=== PATIENT | male | born 1985 | race Caucasian/White ===

== ENCOUNTER 2017-03-20 15:35 | Inpatient (IN) | payer BC, MEDICAID ==
[~2017-03-20] VITALS: Ht 177.8 cm; Wt 81.6 kg
[2017-03-20 15:39] VITALS: BP_SYST 144
--- NOTE | 2017-03-20 15:50 | NUR ---
Patient to ED for eval of abd pain and alcohol intoxication. Patient to Bed 3 to await MD evaluation. Family at bedside, will cotinue to observe and assess
--- NOTE | 2017-03-20 16:00 | NUR ---
Patient to ED for eval of alcohol intoxication-last drink at 0600. Patient c/o sharp pain to chest and abd. Patient denies SOB, also c/o nausea with vomiting at home-none in ED. Patient has been seen and evaluated by ER MD-will continue to observe and assess
--- NOTE | 2017-03-20 16:00 | NUR ---
Dr Wall at bedside to evaluate patient.
[2017-03-20] MEDS ORDERED: FOLIC ACID 1 MG, THIAMINE HCL 100 MG, MAGNESIUM SULFATE 1 GM, MVI 10 ML in NACL 0.9% 1,... IV ONE (16:15)
[2017-03-20 16:32] LABS: BASOPHILS % (AUTO) 0.6 % (0.0-2.0); EOSINOPHILS % (AUTO) 0.1 % (0.0-4.0); HEMATOCRIT 42.6 % (36-54); HEMOGLOBIN 14.3 g/dL (14.0-18.0); LYMPHOCYTES # (AUTO) 0.9 K/uL (1.0-5.5); LYMPHOCYTES % (AUTO) 12.6 % (20.5-51.5); MEAN CORPUSCULAR HEMOGLOBIN 30 pg (27-31); MEAN CORPUSCULAR HGB CONC 34 % (32-36); MEAN CORPUSCULAR VOLUME 88 fL (79.0-98.0); MONOCYTES # (AUTO) 0.5 K/uL (0.0-1.0); MONOCYTES % (AUTO) 6.8 % (1.7-9.3); NEUTROPHILS # (AUTO) 5.8 K/uL (1.8-7.7); NEUTROPHILS % (AUTO) 79.9 % (40.0-70.0); PLATELET COUNT (AUTO) 183 K/uL (130-430); RED BLOOD CELL COUNT(AUTO) 4.84 MIL/uL (4.2-6.2); RED CELL DISTRIBUTION WIDTH 11.5 % (9.0-15.0); WHITE BLOOD COUNT (AUTO) 7.2 K/uL (4.8-10.8)
--- NOTE | 2017-03-20 16:35 | NUR ---
Patient vomited 100mL primarily clear emesis with scant blood. Patient also reports black stool. Dr. Wall was advised.
[2017-03-20 16:41] LABS: CALCIUM 8.8 mg/dL (8.4-11.0); CREATININE 0.74 mg/dL (0.55-1.30); POTASSIUM 3.2 mmol/L (3.5-5.1)
[2017-03-20 16:43] LABS: PROTHROMBIN TIME 10.4 SECS (9.5-12.5)
[2017-03-20 16:45] LABS: ALBUMIN 3.9 g/dL (3.4-4.8); TOTAL BILIRUBIN 0.6 mg/dL (0.0-1.0); TOTAL PROTEIN, SERUM 7.5 g/dL (6.4-8.3)
[2017-03-20 16:45] LABS: BILIRUBIN,URINE NEGATIVE (NEGATIVE); CLARITY/URINE CLEAR (CLEAR); COLOR,URINE YELLOW (YELLOW); GLUCOSE,URINE NEGATIVE (NEGATIVE); KETONES,URINE TRACE (NEGATIVE); LEUKOCYTE ESTERASE ,URINE NEGATIVE (NEGATIVE); NITRITE, URINE NEGATIVE (NEGATIVE); PROTEIN URINE 1+ (NEGATIVE)
[2017-03-20] MEDS ORDERED: ONDANSETRON HCL 4 MG/2 ML VIAL IVP ONE (16:45)
[2017-03-20] MEDS ORDERED: LORazepam 2 MG/ML VIAL (FOR ER USE) IVP ONE ×2 (16:45→18:15)
[2017-03-20] MEDS ORDERED: NACL 0.9% 1,000 ML IV ONE (16:45)
[2017-03-20 16:52] LABS: BLOOD, URINE TRACE (NEGATIVE)
[2017-03-20 16:56] LABS: BACTERIA,URINE FEW /HPF (None Seen); MUCUS,URINE 1+ /LPF (None Seen); RBC,URINE 0-3 /HPF (0-3)
[2017-03-20 16:59] LABS: BARBITURATE, URINE NEGATIVE (NEG <=200); BENZODIAZEPINE, URINE NEGATIVE (NEG <=150); CANNABINOID, URINE NEGATIVE (NEG <=50); COCAINE, URINE NEGATIVE (NEG <=150); METHAMPHETAMINES SCREEN,URINE NEGATIVE (NEG <=500); OPIATE, URINE NEGATIVE (NEG <=100); PHENCYCLIDINE SCREEN,URINE NEGATIVE (NEG <=25); UR TRICYCLIC ANTIDEPRESSANTS NEGATIVE (NEG <=300); URINE AMPHETAMINE NEGATIVE (NEG <=500); URINE METHADONE NEGATIVE (NEG <=200); URINE OXYCODONE SCREEN NEGATIVE (NEG <=100); URINE PROPOXYPHENE SCREEN NEGATIVE (NEG <=300)
--- NOTE | 2017-03-20 16:59 | NUR ---
Patient medicated with Zofran and Ativan as needed. IVF infusing without difficulty no redness or swelling noted at site.
[2017-03-20] MEDS ORDERED: MULT1CAP34 (17:45)
[2017-03-20] MEDS ORDERED: DIVA500T4 PO (17:45)
[2017-03-20] MEDS ORDERED: bp (17:45)
[2017-03-20] MEDS ORDERED: POTASSIUM CHLORIDE 20 MEQ TAB.PRT.SR PO ONE (19:00)
--- NOTE | 2017-03-20 19:17 | NUR ---
Patient will be admitted to care [facility]. Admitted to Tele unit. Will go to room 120 A. Belongings list completed. Summary report printed. Report will be given at bedside.
--- NOTE | 2017-03-20 19:33 | NUR ---
ADMISSION NOTE Received patient from ER via gurney. Patient admitted with diagnosis of Alcohol withdrawal. Patient is awake, alert, oriented X 1-2. Patient oriented to hospital room, call light, toileting, pain management and safety-teach back done. Patient informed that Uriah will be his nurse and that their room number is 120A. Personal belongings checked and Belongings List documented. Call light within reach.
[2017-03-20 19:58] VITALS: BP_SYST 124
[2017-03-20 20:16] VITALS: BP_SYST 124
[2017-03-20 20:17] VITALS: BP_SYST 124
--- NOTE | 2017-03-20 20:42 | NUR ---
NOTES PT ASSISTED TO THE BATHROOM AND VOIDED.BACK TO BED WITH ASSIST.PT ASKING FOR DAYNE PAUL WAS NOTIFIED
[2017-03-20] MEDS: LORazepam 2 MG/ML VIAL IVP PRN (20:50)
[2017-03-20] MEDS: KCL 20 mEq in D5/0.45NS 1000mL 1,000 ML IV SCH ×2 (21:02→21:25)
--- NOTE | 2017-03-20 22:09 | NUR ---
NOTES PT SLEEPING ON AND OFF.FATHER IS AT THE BEDSIDE.CONTINUE TO MONITOR.
--- NOTE | 2017-03-20 23:13 | NUR ---
NOTES PT RESTING WITH EYES CLOSED,FATHER REMAINS AT THE BEDSIDE.
[2017-03-21 00:18] VITALS: BP_SYST 126
--- NOTE | 2017-03-21 01:26 | NUR ---
NOTES PT SLEEPING,SITTER AT THE BEDSIDE.CONTINUE TO MONITOR.
--- NOTE | 2017-03-21 02:24 | NUR ---
NOTES AWAKE ALERT C/O ANXIETY,ASKING FOR ATIVAN.RN WAS NOTIFIED.
--- NOTE | 2017-03-21 02:38 | NUR ---
NOTES PT WAS WAITING FOR THE RN TO BRING THE ATIVAN BUT NOW HAS FALLEN ASLEEP.CONTINUE TO MONITOR.
--- NOTE | 2017-03-21 03:20 | NUR ---
NOTES PT SLEEPING ,FATHER REMAINS AT THE BEDSIDE.CONTINUE TO MONITOR.
[2017-03-21 04:00] VITALS: BP_SYST 130; BP_SYST 141
--- NOTE | 2017-03-21 05:21 | NUR ---
PT CONTINUES TO SLEEP.,WILL CONTINUE TO MONITOR
--- NOTE | 2017-03-21 05:38 | NUR ---
NOTES BREAD SUPERVISOR IS AT THE BEDSIDE TO DRAW BLOOD.
--- NOTE | 2017-03-21 06:23 | NUR ---
CLOSING NOTES.PT REMAINS ASLEEP,WILL ENDORSE THE CARE OF THE PT TO THE DAY NURSE.
[2017-03-21 06:47] LABS: BASOPHILS % (AUTO) 0.8 % (0.0-2.0); HEMOGLOBIN 13.6 g/dL (14.0-18.0); LYMPHOCYTES # (AUTO) 0.7 K/uL (1.0-5.5); LYMPHOCYTES % (AUTO) 14.5 % (20.5-51.5); MEAN CORPUSCULAR HEMOGLOBIN 31 pg (27-31); MEAN CORPUSCULAR HGB CONC 35 % (32-36); MEAN CORPUSCULAR VOLUME 88 fL (79.0-98.0); MONOCYTES # (AUTO) 0.3 K/uL (0.0-1.0); MONOCYTES % (AUTO) 6.7 % (1.7-9.3); NEUTROPHILS # (AUTO) 3.9 K/uL (1.8-7.7); PLATELET COUNT (AUTO) 121 K/uL (130-430); RED BLOOD CELL COUNT(AUTO) 4.43 MIL/uL (4.2-6.2); RED CELL DISTRIBUTION WIDTH 11.9 % (9.0-15.0)
[2017-03-21 06:51] LABS: WHITE BLOOD COUNT (AUTO) 4.9 K/uL (4.8-10.8)
[2017-03-21 07:06] LABS: ALBUMIN 3.2 g/dL (3.4-4.8); CALCIUM 8.3 mg/dL (8.4-11.0); CREATININE 0.71 mg/dL (0.55-1.30); POTASSIUM 3.6 mmol/L (3.5-5.1); TOTAL BILIRUBIN 0.9 mg/dL (0.0-1.0); TOTAL PROTEIN, SERUM 6.4 g/dL (6.4-8.3)
--- NOTE | 2017-03-21 07:50 | NUR ---
AM SHIFT RN NOTE: RECEIVED PT A/O X 3-4, C/O N/V FOR 1 DAY, IV AT LEFT AC WITH D51/2 NS KCL @ 100 ML/HR, SIP OF WATER FOR NOW, SKIN INTACT, VOIDING, AMBULATED WITH WAXING MACHINE OPERATOR, SITTER AT BED SIDE.FAMILY AT BEDSIDE.
[2017-03-21 08:00] VITALS: BP_SYST 134
[2017-03-21] MEDS: DIVALPROEX SODIUM 500 MG TAB.SR.24H (DEPAKOTE ER) PO SCH (08:27)
[2017-03-21] MEDS: KCL 20 mEq in D5/0.45NS 1000mL 1,000 ML IV SCH (08:28)
--- NOTE | 2017-03-21 08:30 | NUR ---
MEDICATION AND ROUNDS PT WAS C/O NERVIOUS, MEDS GIVEN, BED AT LOWEST POSITION, CALL LIGHT WITHIN REACH.
[2017-03-21] MEDS ORDERED: NOR10 PO (08:50)
--- NOTE | 2017-03-21 09:27 | NUR ---
DR JIMENEZ HERE TO SEE THE PATIENT AT BEDSIDE, INFORMED THAT MED REC NEEDS TO BE CONTINUED AND REQUESTED PER PATIENT TO ADVANCE THE DIET. HOME MEDICATIONS CONTINUED AND DIET ORDER RECEIVED: ADVANCE TOLERATED. WILL FOLLOW UP.
[2017-03-21] MEDS ORDERED: amLODIPine BESYLATE 10 MG TABLET PO ONE (09:30)
[2017-03-21] MEDS: LORazepam 2 MG/ML VIAL IVP PRN ×2 (10:05→19:39)
--- NOTE | 2017-03-21 10:54 | NUR ---
PT AMBULATED PT PT HAD PT GIVEN AMBULATED TRAINING WELL TODAY, NO PAIN AT THIS TIME, CONTINUE TO MONITOR.
[2017-03-21 11:40] VITALS: BP_SYST 130
--- NOTE | 2017-03-21 12:09 | NUR ---
DR PENALOZA ROUNDS HERE TO SEE THE PATIENT, DR PENALOZA ALSO SPOKE WITH DR JIMENEZ REGARDING PATIENT PLAN OF CARE, WILL FOLLOW UP WITH ANY NEW ORDERS.
--- NOTE | 2017-03-21 12:30 | NUR ---
PATIENT AMBULATING STEADY GAIT, JAKE OSCAR ASSISTING PATIENT TO ENSURE SAFETY, WILL CONTINUE TO MONITOR.
--- NOTE | 2017-03-21 13:10 | NUR ---
IV RE-INSERTION: Complaining of pain to IV site on left A/C. Restarted on left hand. Successful after attempt. Resumed current IVF. Will observe for any signs of infiltration.
--- NOTE | 2017-03-21 15:19 | NUR ---
REPORT RECEIVED FROM DAYNE BUTCHER AT BEDSIDE. PATIENT IS AWAKE, ALERT AND ORIENTED. NO APPARENT DISTRESS. REQUESTING MORE INFORMATION ABOUT ALCOHOL TREATMENT PROGRAMS.
[2017-03-21] MEDS ORDERED: BANANA BAG 1 EA, MVI 10 ML, THIAMINE HCL 100 MG, FOLIC ACID 1 MG, MAGNESIUM SULFATE 1 G... IV SCH ×5 (16:00)
[2017-03-21] MEDS: chlordiazePOXIDE HCL 25 MG CAPSULE PO SCH ×2 (16:06→20:35)
[2017-03-21 16:22] VITALS: BP_SYST 130
--- NOTE | 2017-03-21 17:28 | NUR ---
INFORMATION ABOUT [employer] SHARED WITH PATIENT AND FATHER, HANDOUT.
--- NOTE | 2017-03-21 18:30 | NUR ---
CLOSING NOTE PATIENT IS STABLE, FATHER IS AT BEDSIDE. TOLERATED DINNER WELL, BANANA BAG INFUSING.
[2017-03-21 20:00] VITALS: BP_SYST 132
--- NOTE | 2017-03-21 20:00 | NUR ---
Initial Note Received patient awake and alert with visitor at the bedside. No complain of pain, n/v or SOB. He just started eating soft food and tolerated well. Ambulated well with steady gait. IVF infusing. Needs attended. Kept warm and comfortable.
--- NOTE | 2017-03-21 23:25 | NUR ---
Note Patient sleeping at this time. No distress noted. Addendum: 03/21/17 at 1706 by Leann Bartlett RN Note at 2200
--- NOTE | 2017-03-22 | NUR ---
Note Sleeping at this time. IVF infusing. No signs and symptoms of distress.
[2017-03-22 00:21] VITALS: BP_SYST 136
--- NOTE | 2017-03-22 02:01 | NUR ---
Note Patient asleep. IVF infusing. No distress.
[2017-03-22] MEDS: KCL 20 mEq in D5/0.45NS 1000mL 1,000 ML IV SCH ×2 (02:29→08:58)
--- NOTE | 2017-03-22 04:00 | NUR ---
Note Sleeping but arousable. No SOB noted. Denies pain at this time. IVF infusing.
[2017-03-22 04:11] VITALS: BP_SYST 124
--- NOTE | 2017-03-22 06:23 | NUR ---
End Note Afebrile. Vital signs stable. Slept the whole night. No complain of pain and SOB throughout the shift. IVF infusing. No changes from previous assessment. Medicated for anxiety last night. AM labs today. Social service consult for outpatient rehab. Needs attended. Kept warm and comfortable.
[2017-03-22 06:37] LABS: BASOPHILS % (AUTO) 0.6 % (0.0-2.0); EOSINOPHILS # (AUTO) 0.2 K/uL (0.0-0.4); EOSINOPHILS % (AUTO) 3.9 % (0.0-4.0); HEMATOCRIT 40.4 % (36-54); HEMOGLOBIN 13.8 g/dL (14.0-18.0); LYMPHOCYTES # (AUTO) 0.8 K/uL (1.0-5.5); LYMPHOCYTES % (AUTO) 17.3 % (20.5-51.5); MEAN CORPUSCULAR HEMOGLOBIN 30 pg (27-31); MEAN CORPUSCULAR HGB CONC 34 % (32-36); MEAN CORPUSCULAR VOLUME 89 fL (79.0-98.0); MONOCYTES # (AUTO) 0.3 K/uL (0.0-1.0); NEUTROPHILS # (AUTO) 3.5 K/uL (1.8-7.7); NEUTROPHILS % (AUTO) 71.2 % (40.0-70.0); PLATELET COUNT (AUTO) 119 K/uL (130-430); RED BLOOD CELL COUNT(AUTO) 4.56 MIL/uL (4.2-6.2); RED CELL DISTRIBUTION WIDTH 11.7 % (9.0-15.0); WHITE BLOOD COUNT (AUTO) 4.9 K/uL (4.8-10.8)
[2017-03-22 06:49] LABS: CALCIUM 8.5 mg/dL (8.4-11.0); CREATININE 0.64 mg/dL (0.55-1.30); POTASSIUM 3.4 mmol/L (3.5-5.1)
--- NOTE | 2017-03-22 07:20 | NUR ---
AM Rounds: Received pt sitting up in bed. No acute signs of distress noted. No shaking or tremors noted. Pt is ambulatory without assistance. Pt denies suicidal ideation and hallucinations at this time. Call light in reach. Pt is able to return demonstrate use of call light at this time. Continue to monitor.
[2017-03-22 08:15] VITALS: BP_SYST 131
[2017-03-22] MEDS: DIVALPROEX SODIUM 500 MG TAB.SR.24H (DEPAKOTE ER) PO SCH (08:57)
[2017-03-22] MEDS: chlordiazePOXIDE HCL 25 MG CAPSULE PO SCH (08:57)
[2017-03-22] MEDS ORDERED: amLODIPine BESYLATE 10 MG TABLET PO SCH (09:00)
--- NOTE | 2017-03-22 09:55 | NUR ---
RN Rounds: AM meds given per MD order. Pt tolerates well. Pt denies pain. No tremors noted at this time. IV intact to RUE. Call light in reach. Continue to monitor.
[2017-03-22] MEDS: LORazepam 2 MG/ML VIAL IVP PRN (11:48)
--- NOTE | 2017-03-22 11:55 | NUR ---
Rounds: Pt c/o anxiety, meds given per MD order. Pt tolerates well. IV restarted to RUE with no redness or swelling noted to site. Call light in reach. Continue to monitor.
[2017-03-22 13:01] VITALS: BP_SYST 138
[2017-03-22] MEDS ORDERED: LIB25 PO (13:32)
[2017-03-22] MEDS ORDERED: LIB10 PO (13:33)
[2017-03-22 13:36] VITALS: BP_SYST 138
--- NOTE | 2017-03-22 14:00 | NUR ---
D/C Patient Patient given medication reconciliation form and D/C instructions. Exit Care provided. Patient verbalized understanding. MD discussed with patient the results and treatment provided. Ambulatory with steady gait for discharge to home. Patient in stable condition, ID band removed. IV catheter removed, intact and dressing applied, no active bleeding. Rx given. Patient educated on pain management. All belongings sent with patient.
== END 2017-03-22 14:00 | disposition home or self-care (01) | DRG 897 ==
LOC: SED 15:35 → STU 18:46 → SMU 03-21 19:14
PROVIDERS: ADMIT Internal Medicine; ATTEND Internal Medicine
DX: F10.239 Alcohol dependence with withdrawal, unspecified (principal); F10.229 Alcohol dependence with intoxication, unspecified; Y90.4 Blood alcohol level of 80-99 mg/100 ml; F41.9 Anxiety disorder, unspecified; I10 Essential (primary) hypertension; F31.9 Bipolar disorder, unspecified; E87.6 Hypokalemia; Z79.899 Other long term (current) drug therapy
CPT/HCPCS: 36415; 71010; 80048; 80053; 80307; 81000-TC; 82272; 82550-TC; 83735-TC; 83880; 85025; 85610-TC; 85730-TC; 93005; 96365; 96366; 96375; 96376; 99285; G0482; J2060; J2405; J3411; J3475; J3490; J7030

== ENCOUNTER 2017-08-26 20:17 | Emergency (ER) | payer MEDICAID ==
[~2017-08-26] VITALS: Ht 177.8 cm; Wt 81.6 kg
[2017-08-26 20:17] VITALS: BP_SYST 142
[~2017-08-26 20:17] MED LIST: DIVA500T4 PO; LIB10 PO; LIB25 PO; MULT1CAP34; NOR10 PO
--- NOTE | 2017-08-26 20:17 | NUR ---
Patient to ER bed 4 to gown for evaluation. Side rails up. Report given to LATISHA OSCAR.
--- NOTE | 2017-08-26 20:20 | NUR ---
Patient to ER via EMT's with c/o ALOC due to ETOH. Patient reports that he drank alcohol today, after being sober for 90 days. Patient with c/o abdominal pain and nausea today. No trauma or injury reported. No LOC, neck pain, back pain, no visual changes reported, patient denies Suicidal Ideation, denies Homicidal Ideation. Patient awaiting evaluation by ER MD, will continue to observe and assess.
[2017-08-26] MEDS ORDERED: FOLIC ACID 1 MG, THIAMINE HCL 100 MG, MAGNESIUM SULFATE 1 GM, MVI 10 ML in NACL 0.9% 1,... IV ONE (20:30)
--- NOTE | 2017-08-26 20:30 | NUR ---
Dr Byrd at bedside for evaluation.
[2017-08-26] MEDS ORDERED: MAGNESIUM SULFATE 1 GM/2 ML VIAL ONE (20:40)
[2017-08-26] MEDS ORDERED: MVI 10 ML VIAL IV ONE (20:40)
[2017-08-26] MEDS ORDERED: THIAMINE HCL 100 MG/ML VIAL ONE (20:40)
[2017-08-26] MEDS ORDERED: FOLIC ACID 5 MG/ML VIAL IV ONE (20:40)
[2017-08-26 20:45] LABS: BASOPHILS # (AUTO) 0.1 K/uL (0.0-0.2); BASOPHILS % (AUTO) 0.9 % (0.0-2.0); EOSINOPHILS % (AUTO) 0.3 % (0.0-4.0); HEMATOCRIT 45.7 % (36-54); HEMOGLOBIN 15.2 g/dL (14.0-18.0); LYMPHOCYTES # (AUTO) 1.8 K/uL (1.0-5.5); LYMPHOCYTES % (AUTO) 27.5 % (20.5-51.5); MEAN CORPUSCULAR HEMOGLOBIN 29 pg (27-31); MEAN CORPUSCULAR HGB CONC 33 % (32-36); MEAN CORPUSCULAR VOLUME 86 fL (79.0-98.0); MONOCYTES # (AUTO) 0.3 K/uL (0.0-1.0); MONOCYTES % (AUTO) 4.4 % (1.7-9.3); NEUTROPHILS # (AUTO) 4.5 K/uL (1.8-7.7); NEUTROPHILS % (AUTO) 66.9 % (40.0-70.0); PLATELET COUNT (AUTO) 287 K/uL (130-430); RED BLOOD CELL COUNT(AUTO) 5.34 MIL/uL (4.2-6.2); WHITE BLOOD COUNT (AUTO) 6.7 K/uL (4.8-10.8)
--- NOTE | 2017-08-26 21:00 | NUR ---
IV fluid infusing without difficulty-no redness or swelling noted at site. IV placed using aseptic technique by Valerie to the right ac, patient tolerated well. IV flushed with NS without difficulty, opsite applied, and IV secured with tape.
[2017-08-26 21:01] LABS: ANION GAP 11 (5-15); CALCIUM 8.7 mg/dL (8.4-11.0); CHLORIDE 104 mmol/L (98-107); CREATININE 0.76 mg/dL (0.55-1.30); GLUCOSE 103 mg/dL (70-99); POTASSIUM 3.9 mmol/L (3.5-5.1); SODIUM SERUM 141 mmol/L (136-145); UREA NITROGEN, BLOOD 7 mg/dL (8-21)
[2017-08-26 21:02] LABS: GFR AFRICAN AMERICAN 153 mL/min (>90)
[2017-08-26 21:06] LABS: ALANINE AMINOTRANSFERASE 40 U/L (12-78); ALBUMIN 4.2 g/dL (3.4-4.8); ASPARTATE AMINOTRANSFERASE 35 U/L (10-37); LIPASE 170 U/L (73-393); TOTAL BILIRUBIN 0.4 mg/dL (0.0-1.0)
[2017-08-26 21:12] LABS: ACETAMINOPHEN < 1 ug/mL (1-30)
[2017-08-26] MEDS ORDERED: LORazepam 1 MG TABLET PO ONE (21:15)
[2017-08-26 21:21] LABS: ALCOHOL, BLOOD 368 mg/dL (<10)
--- NOTE | 2017-08-26 22:00 | NUR ---
Patient resting quietly in no acute distress. IV fluid infusing without difficulty-no redness or swelling noted at site. Awaiting dispo.
--- NOTE | 2017-08-26 23:00 | NUR ---
Patient resting quietly in no acute distress, vital signs stable, respirations even and unlabored, skin warm and dry to touch. IV fluid infusing without difficulty-no redness or swelling noted at site.
--- NOTE | 2017-08-26 23:30 | NUR ---
Patient voided approximately 100 ml of clear/yellow urine. Sample obtained and sent to lab.
[2017-08-26 23:43] LABS: BILIRUBIN,URINE NEGATIVE (NEGATIVE); BLOOD, URINE 1+ (NEGATIVE); CLARITY/URINE CLEAR (CLEAR); COLOR,URINE YELLOW (YELLOW); GLUCOSE,URINE NEGATIVE (NEGATIVE); KETONES,URINE 1+ (NEGATIVE); LEUKOCYTE ESTERASE ,URINE NEGATIVE (NEGATIVE); NITRITE, URINE NEGATIVE (NEGATIVE); PH,URINE 5.5 (5.0-8.0); PROTEIN URINE TRACE (NEGATIVE); UROBILINOGEN,URINE 0.2 (0.2-1.0)
[2017-08-26 23:55] LABS: BACTERIA,URINE FEW /HPF (None Seen); WBC,URINE 0-3 /HPF (0-3)
[2017-08-26 23:56] LABS: MUCUS,URINE 1+ /LPF (None Seen)
[2017-08-26 23:58] LABS: BARBITURATE, URINE NEGATIVE (NEG <=200); BENZODIAZEPINE, URINE POSITIVE (NEG <=150); CANNABINOID, URINE NEGATIVE (NEG <=50); COCAINE, URINE NEGATIVE (NEG <=150); METHAMPHETAMINES SCREEN,URINE NEGATIVE (NEG <=500); OPIATE, URINE NEGATIVE (NEG <=100); PHENCYCLIDINE SCREEN,URINE NEGATIVE (NEG <=25); UR TRICYCLIC ANTIDEPRESSANTS NEGATIVE (NEG <=300); URINE AMPHETAMINE NEGATIVE (NEG <=500); URINE METHADONE NEGATIVE (NEG <=200); URINE OXYCODONE SCREEN NEGATIVE (NEG <=100); URINE PROPOXYPHENE SCREEN NEGATIVE (NEG <=300)
--- NOTE | 2017-08-27 00:30 | NUR ---
Patient resting quietly in no acute distress. Assessment remains unchanged.
--- NOTE | 2017-08-27 01:05 | NUR ---
Patient asking to speak with doctor, Dr Byrd at bedside to re-evaluate patient. OK for patient to drink water per Dr Byrd. Awaiting dispo.
--- NOTE | 2017-08-27 01:10 | NUR ---
IV out, pressure applied to IV insertion site-no bleeding or hematoma noted. Dressing secured with tape, patient cleaned up. Will check with Dr Byrd, and restart IV if needed.
[2017-08-27] MEDS ORDERED: NACL 0.9% 1,000 ML IV ONE (01:15)
[2017-08-27] MEDS ORDERED: LORazepam 1 MG TABLET PO ONE (01:15)
--- NOTE | 2017-08-27 01:30 | NUR ---
IV restarted by Luis OSCAR in right AC using aseptic technique-patient tolerated well. IV flushed with 10 ml of NS. No redness or swelling noted at site. Opsite applied, IV secured with tape.
--- NOTE | 2017-08-27 01:45 | NUR ---
IV fluid infusing without difficulty-no redness or swelling noted at site. Vital signs stable, respirations even and unlabored, skin warm and dry to touch. Will continue to observe and assess.
--- NOTE | 2017-08-27 02:30 | NUR ---
Patient resting quietly in no acute distress, vital signs stable, respirations even and unlabored, skin warm and dry to touch. IV fluid infusing without difficulty-no redness or swelling noted at site. Will continue to observe and assess.
--- NOTE | 2017-08-27 03:10 | NUR ---
Patient resting quietly in no acute distress, vital signs stable, respirations even and unlabored, skin warm and dry to touch. IV fluid infusing without difficulty. Patient c/o "not feeling well, just don't feel right" Patient unable to explain any further. Dr Byrd notified of patient's complaints-no additional orders received. Will continue to observe and assess.
[2017-08-27] MEDS ORDERED: VITA1CAP PO (03:24)
[2017-08-27] MEDS ORDERED: VITD2000 PO (03:24)
[2017-08-27] MEDS ORDERED: OMEG1CAP48 PO (03:24)
--- NOTE | 2017-08-27 03:24 | NUR ---
Medication reconciliation completed with information provided by patient. Any prior medication reconciliation on file was reviewed and corrected.
--- NOTE | 2017-08-27 03:30 | NUR ---
Recieved report from Bradford OSCAR. Will assume care at this time.
--- NOTE | 2017-08-27 04:48 | NUR ---
ED MD Byrd at bedside reassessing patient.
[2017-08-27 05:10] VITALS: BP_SYST 127
--- NOTE | 2017-08-27 05:10 | NUR ---
Patient given written and verbal discharge instructions and verbalizes understanding. ER MD discussed with patient the results and treatment provided. Patient in stable condition. ID arm band removed. IV catheter removed intact and dressing applied, no active bleeding. Rx of Ativan given. Patient educated on pain management and to follow up with PMD. Pain Scale 2/10 at this time. Opportunity for questions provided and answered.
== END 2017-08-27 05:10 | disposition home or self-care (01) ==
LOC: SED 20:17
DX: F10.129 Alcohol abuse with intoxication, unspecified (principal); I10 Essential (primary) hypertension; F31.9 Bipolar disorder, unspecified; F41.9 Anxiety disorder, unspecified; Z88.0 Allergy status to penicillin; Z79.899 Other long term (current) drug therapy; Y90.8 Blood alcohol level of 240 mg/100 ml or more
CPT/HCPCS: 36415; 80053; 80307; 81000; 83690; 85025; 96360; 96365; 99284; G0480; G0481; G0482; J3411; J3475; J3490; J7030 ×2

== ENCOUNTER 2017-11-13 02:42 | Emergency (ER) | payer MEDICAID ==
[~2017-11-13] VITALS: Ht 182.9 cm; Wt 86.2 kg
[~2017-11-13 02:42] MED LIST changes: -LIB10 PO; -LIB25 PO; +OMEG1CAP48 PO; +VITA1CAP PO; +VITD2000 PO
[2017-11-13 02:43] VITALS: BP_SYST 122
[2017-11-13] MEDS ORDERED: FOLIC ACID 1 MG, THIAMINE HCL 100 MG, MAGNESIUM SULFATE 1 GM, MVI 10 ML in NACL 0.9% 1,... IV ONE (02:46)
--- NOTE | 2017-11-13 02:57 | NUR ---
Patient to ER bed 3 to gown for evaluation. Side rails up. Report given to Bradford OSCAR.
[2017-11-13] MEDS ORDERED: MAGNESIUM SULFATE 1 GM/2 ML VIAL ONE (02:59)
[2017-11-13] MEDS ORDERED: MVI 10 ML VIAL IV ONE (02:59)
[2017-11-13] MEDS ORDERED: FOLIC ACID 5 MG/ML VIAL IV ONE (02:59)
[2017-11-13] MEDS ORDERED: THIAMINE HCL 100 MG/ML VIAL ONE (02:59)
--- NOTE | 2017-11-13 03:00 | NUR ---
Patient to ER via EMT ambulance s/p ETOH abuse from home. Patient had fall earlier today and was taken to [facility] and was worked up there and discharged home. Patient admits to drinking alcohol today-states trying to taper down his usuage. Patient noted to have bruise on forehead, pupils equal and reactive to light. Patient on tread cutter showing sinus rhythm/sinus tachycardia, patient on BP monitor, and pulse oximeter. No c/o nausea/vomiting. Patient does admit to Auditory and Visual Hallucinations, attempting to argue with someone that only the patient is able to see. Patient with shaking of upper and lower extremities. Awaiting evaluation by ER MD, will continue to observe and assess.
--- NOTE | 2017-11-13 03:05 | NUR ---
Dr Byrd at bedside to evaluate patient.
[2017-11-13 03:06] LABS: BASOPHILS % (AUTO) 0.6 % (0.0-2.0); EOSINOPHILS % (AUTO) 0.1 % (0.0-4.0); HEMOGLOBIN 14.9 g/dL (14.0-18.0); LYMPHOCYTES # (AUTO) 1.4 K/uL (1.0-5.5); LYMPHOCYTES % (AUTO) 23.1 % (20.5-51.5); MEAN CORPUSCULAR HEMOGLOBIN 29 pg (27-31); MEAN CORPUSCULAR HGB CONC 34 % (32-36); MEAN CORPUSCULAR VOLUME 85 fL (79.0-98.0); MONOCYTES # (AUTO) 0.3 K/uL (0.0-1.0); MONOCYTES % (AUTO) 5.1 % (1.7-9.3); NEUTROPHILS # (AUTO) 4.5 K/uL (1.8-7.7); NEUTROPHILS % (AUTO) 71.1 % (40.0-70.0); PLATELET COUNT (AUTO) 166 K/uL (130-430); RED BLOOD CELL COUNT(AUTO) 5.16 MIL/uL (4.2-6.2); RED CELL DISTRIBUTION WIDTH 13.2 % (9.0-15.0); WHITE BLOOD COUNT (AUTO) 6.2 K/uL (4.8-10.8)
--- NOTE | 2017-11-13 03:10 | NUR ---
#18 IV placed to left wrist using aseptic technique, blood specimens obtained and sent to lab. IV flushed with 10 ml NS without difficulty, no redness or swelling noted at site. Opsite applied, and IV secured with tape.
[2017-11-13 03:16] LABS: ANION GAP 8 (5-15); CALCIUM 8.4 mg/dL (8.4-11.0); CHLORIDE 101 mmol/L (98-107); CREATININE 0.75 mg/dL (0.55-1.30); GLUCOSE 133 mg/dL (70-99); POTASSIUM 3.1 mmol/L (3.5-5.1); SODIUM SERUM 137 mmol/L (136-145); UREA NITROGEN, BLOOD 9 mg/dL (8-21)
[2017-11-13 03:17] LABS: GFR AFRICAN AMERICAN 155 mL/min (>90)
[2017-11-13 03:20] LABS: ACETAMINOPHEN < 1 ug/mL (1-30); ALANINE AMINOTRANSFERASE 57 U/L (12-78); ALBUMIN 3.9 g/dL (3.4-4.8); ASPARTATE AMINOTRANSFERASE 55 U/L (10-37); TOTAL BILIRUBIN 0.5 mg/dL (0.0-1.0)
--- NOTE | 2017-11-13 03:30 | NUR ---
IV fluids infusing without difficulty-no redness or swelling noted at site. Assessment remains unchanged. Patient provided with urinal and informed that we needed a urine sample. Patient states that he understands.
[2017-11-13 03:32] LABS: ALCOHOL, BLOOD 334 mg/dL (<10)
--- NOTE | 2017-11-13 03:45 | NUR ---
Patient provided urine sample which was sent to lab for analysis
[2017-11-13 04:00] LABS: BARBITURATE, URINE NEGATIVE (NEG <=200); BENZODIAZEPINE, URINE POSITIVE (NEG <=150); CANNABINOID, URINE NEGATIVE (NEG <=50); COCAINE, URINE NEGATIVE (NEG <=150); METHAMPHETAMINES SCREEN,URINE NEGATIVE (NEG <=500); OPIATE, URINE NEGATIVE (NEG <=100); PHENCYCLIDINE SCREEN,URINE NEGATIVE (NEG <=25); UR TRICYCLIC ANTIDEPRESSANTS NEGATIVE (NEG <=300); URINE AMPHETAMINE NEGATIVE (NEG <=500); URINE METHADONE NEGATIVE (NEG <=200); URINE OXYCODONE SCREEN NEGATIVE (NEG <=100); URINE PROPOXYPHENE SCREEN NEGATIVE (NEG <=300)
--- NOTE | 2017-11-13 04:00 | NUR ---
Assessment remains unchanged-Report given to Julia Long for continued care.
--- NOTE | 2017-11-13 05:00 | NUR ---
PT AGITATED , CLIMBING OUT OF BED.REDIRECTED TO REMAIN IN [place].
[2017-11-13] MEDS ORDERED: ONDANSETRON HCL 4 MG/2 ML VIAL IVP ONE (05:15)
--- NOTE | 2017-11-13 06:00 | NUR ---
CONTINUES TO BE AGITATED , CLIMBING OUT OF BED, REQUESTING TO LEAVE. DR WHITE AWARE.
--- NOTE | 2017-11-13 06:22 | NUR ---
Patient does not wish to proceed with medical care recommended by DR WHITE. Patient given information related to possible complications, up to and including , which could occur as a result of leaving hospital at this time. Patient verbalizes understanding of risks involved leaving against medical advice. Patient has signed AMA form.
[2017-11-13 06:23] VITALS: BP_SYST 138
== END 2017-11-13 06:22 | disposition left against medical advice (07) ==
LOC: SED 02:42
DX: S00.83XA Contusion of other part of head, initial encounter (principal); G92 Toxic encephalopathy; F10.229 Alcohol dependence with intoxication, unspecified; F31.9 Bipolar disorder, unspecified; I10 Essential (primary) hypertension; F41.9 Anxiety disorder, unspecified; Z88.0 Allergy status to penicillin; Z79.899 Other long term (current) drug therapy; W18.30XA Fall on same level, unspecified, initial encounter; Y93.89 Activity, other specified; Y92.89 Other specified places as the place of occurrence of the external cause; Y99.8 Other external cause status
CPT/HCPCS: 36415; 80053; 80307; 85025; 96365; 96375; 99284; G0480; G0481; G0482; J2405; J3411; J3475; J3490; J7030